=== PATIENT | male | born 1940 | race African-American/Black ===

== ENCOUNTER 2022-10-12 11:04 | Emergency (ER) | payer BC, OTHER ==
[~2022-10-12] VITALS: Ht 177.8 cm; Wt 78.0 kg
[2022-10-12 11:13] VITALS: TEMP 98.3
--- NOTE | 2022-10-12 11:15 | NUR ---
[id number] FROM HOME FOR RIGHT HIP PAIN S/P SLIP FALL YESTERDAY. NO LOC. PLACED IN BED, AAOX4, BREATHING EVEN AND UNLABORED SATURATING AT 97%RA.
--- NOTE | 2022-10-12 11:17 | NUR ---
AT BEDSIDE FOR EVAL.
--- NOTE | 2022-10-12 11:55 | NUR ---
MOVE SHEET SUBMITTED.
--- NOTE | 2022-10-12 12:05 | NUR ---
X-RAY TECH AT BEDSIDE
[2022-10-12 12:38] LABS: BASOPHILS % (AUTO) 0.3 % (0.0-2.0); EOSINOPHILS % (AUTO) 2.5 % (0.0-6.0); HEMATOCRIT 36 % (39-51); HEMOGLOBIN 11.7 g/dL (13.5-17.5); LYMPHOCYTES # (AUTO) 1.5 K/uL (0.8-4.8); LYMPHOCYTES % (AUTO) 18.4 % (20.0-44.0); MEAN CORPUSCULAR HGB CONC 33 g/dl (31.0-36.0); MEAN CORPUSCULAR VOLUME 83 fL (80-96); MONOCYTES # (AUTO) 0.7 K/uL (0.1-1.30); MONOCYTES % (AUTO) 8.6 % (2.0-12.0); NEUTROPHILS # (AUTO) 5.9 K/uL (1.8-8.9); NEUTROPHILS % (AUTO) 70.2 % (43.0-81.0); PLATELET COUNT (AUTO) 234 K/uL (150-450); RED BLOOD CELL COUNT(AUTO) 4.32 MIL/uL (4.5-6.0); WHITE BLOOD COUNT (AUTO) 8.4 K/uL (4.3-11.0)
[2022-10-12 12:47] LABS: CALCIUM, SERUM 9.6 mg/dL (8.5-10.1); POTASSIUM 3.9 mmol/L (3.5-5.1)
--- NOTE | 2022-10-12 13:57 | NUR ---
REGINALD (TOMOGRAPHY TECHNOLOGIST [employer]) [phone]
--- NOTE | 2022-10-12 15:22 | NUR ---
DR. DAVID Wade. SPEAKING WITH DR. BIRCH.
--- NOTE | 2022-10-12 15:25 | NUR ---
PATIENT TAKEN TO CT VIA [facility]
--- NOTE | 2022-10-12 16:02 | NUR ---
PER REGINALD BROWN - TANVIR ACCEPTED AT [facility] [place], ACCEPTING DR SRINIVAS HERNANDEZ, AWAITING CALLBACK FOR BED ASSIGNMENT
--- NOTE | 2022-10-12 16:13 | NUR ---
ACCEPTED AT [facility] GOING TO 443.2, M/S NUMBER FOR REPORT [phone], [place] CHARGE NURSE. TRANSPORT ETA 190
[2022-10-12] MEDS ORDERED: IBUPROFEN 400 MG TABLET PO ONE (16:30)
[2022-10-12] MEDS ORDERED: LIDOCAINE 5% (PATCH) 1 EA PATCH TP ONE ×2 (16:30→16:38)
[2022-10-12] MEDS ORDERED: IBUPROFEN 400 MG TABLET ONE (16:38)
[2022-10-12 17:00] VITALS: BP 138/86
--- NOTE | 2022-10-12 17:16 | NUR ---
PER REGINALD ROCHA [facility] ETA 20:30 TO BE TAKEN TO BED 443 BED 2 CONTACT FOR REPORT
--- NOTE | 2022-10-12 19:59 | NUR ---
REPORT GIVEN TO YUMIKO RHODES [facility]
--- NOTE | 2022-10-12 20:47 | NUR ---
PATIENT PICKUP BY ALL [facility]. STAFF IN A STABLE CONDITION PAIN FREE AND REPORT GIVEN FOR TRANSFER TO [facility].
== END 2022-10-12 20:47 | disposition short-term general hospital (02) ==
LOC: ER 11:08
DX: S79.811A Other specified injuries of right hip, initial encounter (principal); Z20.822 Contact with and (suspected) exposure to COVID-19; V03.99XA Pedestrian with other conveyance injured in collision with car, pick-up truck or van, unspecified whether traffic or nontraffic accident, initial encounter; Y93.89 Activity, other specified; Y92.89 Other specified places as the place of occurrence of the external cause; Y99.8 Other external cause status
CPT/HCPCS: 36415; 72170-TC; 72192-TC; 73502; 80048-TC; 85025-TC; 87081-TC; C9803